=== PATIENT | male | born 1975 | race Caucasian/White ===

== ENCOUNTER 2016-12-14 17:28 | Emergency (ER) | payer BC ==
[2016-12-14] MEDS ORDERED: Penicillin G Benzathine 1.2MU* 1,200,000 UNITS/2 ML SYR IM ONE (17:52)
[2016-12-14 18:00] VITALS: BP 135/83
--- NOTE | 2016-12-14 18:01 | UC ---
Dental HPI - HPI Summary HPI Summary: patient has a row of broken and cavity filled teeth, large abcess and appears to be nerve pain he is experiencing. - History of Current Complaint Chief Complaint: UCDentalProblem Stated Complaint: DENTAL PAIN Time Seen by Provider: 12/14/16 17:58 Hx Obtained From: Patient Onset/Duration: Sudden Onset, Lasting Weeks Severity: Severe Related History: Previous Dental Care on Same Tooth - Allergies/Home Medications Allergies/Adverse Reactions: Allergies Allergy/AdvReac Type Severity Reaction Status Date / Time Ibuprofen [From Motrin] AdvReac Nausea Verified 12/14/16 17:51 PMH/Surg Hx/FS Hx/Imm Hx Previously Healthy: Yes - Surgical History Surgical History: Yes Surgery Procedure, Year, and Place: undescended testicle and hernia - Family History Known Family History: Negative: Cardiac Disease, Hypertension - Social History Alcohol Use: Occasionally Substance Use Type: None Smoking Status (MU): Never Smoked Tobacco - Immunization History Most Recent Tetanus Shot: 2013 Review of Systems Constitutional: Negative Skin: Negative Eyes: Negative ENT: Dental Pain Respiratory: Negative Cardiovascular: Negative Gastrointestinal: Negative Genitourinary: Negative Motor: Negative Neurovascular: Negative Musculoskeletal: Negative Neurological: Negative Psychological: Negative All Other Systems Reviewed And Are Negative: Yes Physical Exam Triage Information Reviewed: Yes Appearance: Well-Appearing, Well-Nourished, Pain Distress Vital Signs: Initial Vital Signs Temp 97.5 F 12/14/16 17:52 Pulse 65 12/14/16 17:52 Resp 16 12/14/16 17:52 BP 135/83 12/14/16 17:52 Pulse Ox 97 12/14/16 17:52 Vital Signs Reviewed: Yes Eye Exam: Normal Eyes: Positive: Conjunctiva Clear ENT Exam: Normal ENT: Positive: Hearing grossly normal, Pharynx normal, TMs normal Dental Exam: Normal Dental: Positive: Gross Decay/Caries @, Dental Fracture @, Abscess @ - right lower jaw Neck exam: Normal Neck: Positive: Supple, Nontender, No Lymphadenopathy Respiratory Exam: Normal Cardiovascular Exam: Normal Abdominal Exam: Normal Abdomen Description: Positive: Nontender, No Organomegaly, Soft Bowel Sounds: Positive: Present Musculoskeletal Exam: Normal Musculoskeletal: Positive: Strength Intact, ROM Intact, No Edema Neurological Exam: Normal Neurological: Positive: Alert, Muscle Tone Normal Psychological Exam: Normal Skin Exam: Normal Dental Complaint Course/Dx - Course Course Of Treatment: hx obtained, exam performed ,meds reviewed, given shot of pcn, prescribed a few days of pain medication recommend follow up with dentist - Differential Dx/Diagnosis Differential Diagnosis/Dx: Dental Caries, Fractured Tooth, Peridontic Disease, Pharyngitis, Tonsillitis Provider Diagnoses: fractured molar,. multiple dental caries. dental nerve pain/sensitivity Discharge - Discharge Plan Condition: Stable Disposition: HOME Prescriptions: HYDROcodone/ACETAMIN 5-325 MG* [Webster 5-325 TAB*] 1 tab PO Q8H PRN #12 tab MDD 3 tabs PRN Reason: Pain Patient Education Materials: Dental Abscess (ED) Referrals: Micah Bryan MD [Primary Care Provider] - Additional Instructions: you have an infection in the bottom left jaw, I have given a shot of penicillin for the infection and I recommend the Webster as needed for apin, Do not drink, drive or operate heavy machinery while on the pain medication. Follow up with the dentist JACKIE
== END 2016-12-14 18:21 | disposition home or self-care (01) ==
LOC: UCCORT 17:28
DX: S02.5XXA Fracture of tooth (traumatic), initial encounter for closed fracture (principal); K02.9 Dental caries, unspecified; G58.8 Other specified mononeuropathies
CPT/HCPCS: 96372; 99212; G0463; J0558

== ENCOUNTER 2017-01-26 11:42 | Emergency (ER) | payer BC ==
[2017-01-26 12:28] VITALS: BP 123/79
[2017-01-26] MEDS ORDERED: Ketorolac INJ* 60 MG/2 ML VIAL IM ONE (13:03)
--- NOTE | 2017-01-26 13:25 | UC ---
Lower Extremity/Ankle HPI - HPI Summary HPI Summary: Pt presents with c/o left posteior leg pain X 2 weeks. Pt reports that he was moving and lifting heavy itmes two weeks ago and had c/o low back pain. Pt then reports that he began having pain thet radiates from mid peft posterior buttock, to bottom of left foot. Pt reprots that left calf and posterior knee feel numb, tingling, and painful. Pt alos reports that left upper posterior leg is painful. Pt has family history for DVT and is concened that he has one. - History of Current Complaint Chief Complaint: UCLowerExtremity Stated Complaint: LEFT LEG PAIN,NUMBNESS Time Seen by Provider: 01/26/17 12:35 Hx Obtained From: Patient Onset/Duration: Gradual Onset, Lasting Weeks Severity Initially: Mild Severity Currently: Moderate Aggravating Factor(s): Standing, Ambulation Alleviating Factor(s): Nothing Able to Bear Weight: Yes - Risk Factors Gout Risk Factors: Male DVT Risk Factors: Negative Septic Arthritis Risk Factor: Negative - Allergies/Home Medications Allergies/Adverse Reactions: Allergies Allergy/AdvReac Type Severity Reaction Status Date / Time Ibuprofen [From Motrin] AdvReac Nausea Verified 01/26/17 12:24 Home Medications: Home Medications Naproxen TAB* [Naprosyn 250 mg TAB*] 250 mg PO Q8H PRN 01/26/17 [History Confirmed 01/26/17] PMH/Surg Hx/FS Hx/Imm Hx Previously Healthy: Yes - Surgical History Surgical History: Yes Surgery Procedure, Year, and Place: undescended testicle and hernia - Family History Known Family History: Positive: Other - DVT 2 brothers Negative: Cardiac Disease, Hypertension - Social History Occupation: Employed Full-time Lives: With Family Alcohol Use: Occasionally Substance Use Type: None Smoking Status (MU): Never Smoked Tobacco Have You Smoked in the Last Year: No - Immunization History Most Recent Tetanus Shot: 2013 Review of Systems Constitutional: Negative Skin: Negative Eyes: Negative ENT: Negative Respiratory: Negative Cardiovascular: Negative Gastrointestinal: Negative Genitourinary: Negative Motor: Decreased ROM - left lowerleg Neurovascular: Other - numbness, tingling Musculoskeletal: Arthralgia, Calf Tenderness - left, Myalgia Neurological: Weakness - left lower extremity Psychological: Negative Is Patient Immunocompromised?: No All Other Systems Reviewed And Are Negative: Yes Physical Exam Triage Information Reviewed: Yes Completion Of Physical Exam Limited Due To: Patient age - mild Appearance: Pain Distress Vital Signs: Initial Vital Signs Temp 97.9 F 01/26/17 12:25 Pulse 73 01/26/17 12:25 Resp 16 01/26/17 12:25 BP 123/79 01/26/17 12:25 Pulse Ox 98 01/26/17 12:25 Vital Signs Reviewed: Yes Eye Exam: Normal ENT Exam: Normal Neck exam: Normal Respiratory Exam: Normal Cardiovascular Exam: Normal Abdominal Exam: Normal Musculoskeletal: Positive: Strength Limited @ - left lower extremity, Other: - tenderness, left buttock, left posterior calf and knee with palpation Neurological Exam: Normal Psychological Exam: Normal Skin Exam: Normal Lower Extremity Course/Dx - Course Course Of Treatment: I discussed with the pt the need to go to the ER for further evaluation and testing to rule out DVt. Pt verbalized understanding and agreed to plan of care. - Differential Dx/Diagnosis Differential Diagnosis/HQI/PQRI: DVT Provider Diagnoses: Sciatica left lower leg Discharge - Discharge Plan Condition: Stable Disposition: HOME Patient Education Materials: Sciatica (ED), Leg Edema (ED), Leg Pain (ED), Lower Back Exercises (ED) Referrals: Micah Bryan MD [Primary Care Provider] - If Needed Additional Instructions: It is recommended that you follow up immediately at the Emergency Department for further evaluation and testing.
== END 2017-01-26 13:30 | disposition home or self-care (01) ==
LOC: UCCORT 11:42
DX: M54.32 Sciatica, left side (principal); Z88.6 Allergy status to analgesic agent
CPT/HCPCS: 96372; 99211; G0463; J1885

== ENCOUNTER 2017-10-04 17:21 | Emergency (ER) | payer SELFPAY ==
[2017-10-04 17:41] VITALS: BP 144/88
--- NOTE | 2017-10-04 18:06 | UC ---
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 - History of Current Complaint Chief Complaint: UCLowerExtremity Stated Complaint: R KNEE INJURY Time Seen by Provider: 10/04/17 17:46 Hx Obtained From: Patient Onset/Duration: Sudden Onset, Lasting Hours Severity Initially: Moderate Severity Currently: Mild Pain Intensity: 2 Pain Scale Used: 0-10 Numeric Character: Dull, Aching Aggravating Factor(s): Weight Bearing Alleviating Factor(s): Rest Associated Signs And Symptoms: Positive: Negative Able to Bear Weight: Yes - Allergies/Home Medications Allergies/Adverse Reactions: Allergies Allergy/AdvReac Type Severity Reaction Status Date / Time ibuprofen Allergy Nausea Verified 10/04/17 17:42 PMH/Surg Hx/FS Hx/Imm Hx Previously Healthy: Yes - Surgical History Surgical History: Yes Surgery Procedure, Year, and Place: undescended testicle and hernia. HERNIATED DISC REPAIR mar - Family History Known Family History: Positive: Other - DVT 2 brothers Negative: Cardiac Disease, Hypertension - Social History Alcohol Use: Occasionally Substance Use Type: None Smoking Status (MU): Never Smoked Tobacco Have You Smoked in the Last Year: No - Immunization History Most Recent Tetanus Shot: 2013 Review of Systems Constitutional: Negative Skin: Negative Eyes: Negative ENT: Negative Respiratory: Negative Cardiovascular: Negative Gastrointestinal: Negative Genitourinary: Negative Motor: Negative Neurovascular: Negative Musculoskeletal: Arthralgia Neurological: Negative Psychological: Negative Is Patient Immunocompromised?: No All Other Systems Reviewed And Are Negative: Yes Physical Exam Triage Information Reviewed: Yes Appearance: Well-Appearing, No Pain Distress, Well-Nourished Vital Signs: Initial Vital Signs Temp 99.4 F 10/04/17 17:36 Pulse 76 10/04/17 17:36 Resp 16 10/04/17 17:36 BP 144/88 10/04/17 17:36 Pulse Ox 99 10/04/17 17:36 Vital Signs Reviewed: Yes Eyes: Positive: Conjunctiva Clear ENT: Positive: Hearing grossly normal. Negative: Nasal congestion, Nasal drainage, Trismus, Muffled voice, Hoarse voice Neck: Positive: Supple Respiratory: Positive: No respiratory distress, No accessory muscle use Musculoskeletal: Positive: Strength Intact, ROM Intact, No Edema, Other: - non tender Neurological: Positive: Alert Psychological Exam: Normal Skin Exam: Normal Knee Pain Course/Dx - Differential Dx/Diagnosis Provider Diagnoses: trivial left knee injury. possible mild MCL strain Discharge - Sign-Out/Discharge Documenting (check all that apply): Discharge/Admit/Transfer - Discharge Plan Condition: Stable Disposition: HOME Patient Education Materials: Knee Pain (ED) Referrals: Micah Bryan MD [Primary Care Provider] - Additional Instructions: i suspect a mild knee sprain rest ice elevation aleve I expect you to be able to return to full duty on 10/06 If symptoms worsen return here for reevaluation - Billing Disposition and Condition Condition: STABLE Disposition: HOME
== END 2017-10-04 18:02 | disposition home or self-care (01) ==
LOC: UCEAST 17:21
DX: S89.92XA Unspecified injury of left lower leg, initial encounter (principal); X58.XXXA Exposure to other specified factors, initial encounter; Y93.89 Activity, other specified; Y92.9 Unspecified place or not applicable; Y99.0 Civilian activity done for income or pay; Z88.6 Allergy status to analgesic agent
CPT/HCPCS: 99211; G0463

== ENCOUNTER 2019-01-26 19:22 | Emergency (ER) | payer OTHER ==
[2019-01-26 19:41] VITALS: BP 140/83
[2019-01-26] MEDS ORDERED: Cyclobenzaprine TAB* 10 MG PO ONE (20:37)
--- NOTE | 2019-01-26 20:54 | UC ---
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 LANDED ON HIS LEFT FOREARM SUSTAINING AN ABRASION AND JAMMED HIS RIGHT ARM. ALSO SOMEHOW LANDED ON HIS BUTTOCKS AND HAS MID BACK PAIN. NO SWELLING. FULL RANGE OF MOTION. UP-TO-DATE TETANUS. - History of Current Complaint Chief Complaint: UCUpperExtremity Stated Complaint: FALL, ARM AND OTHER PAIN Time Seen by Provider: 01/26/19 20:17 Hx Obtained From: Patient Onset/Duration: Sudden Onset, Lasting Hours, Still Present Onset Of Pain: Immediate Severity Initially: Moderate Severity Currently: Moderate Pain Intensity: 6 Pain Scale Used: 0-10 Numeric Mechanism Of Injury: Fall From A Standing Position Aggravating Factor(s): Movement Alleviating Factor(s): Rest Associated Signs And Symptoms: Negative: Ecchymosis - Allergies/Home Medications Allergies/Adverse Reactions: Allergies Allergy/AdvReac Type Severity Reaction Status Date / Time ibuprofen Allergy Nausea Verified 01/26/19 19:41 PMH/Surg Hx/FS Hx/Imm Hx Previously Healthy: Yes - Surgical History Surgical History: Yes Surgery Procedure, Year, and Place: undescended testicle and hernia. HERNIATED DISC REPAIR mar - Family History Known Family History: Positive: Other - DVT 2 brothers Negative: Cardiac Disease, Hypertension - Social History Alcohol Use: Rare Substance Use Type: None Smoking Status (MU): Never Smoked Tobacco Have You Smoked in the Last Year: No - Immunization History Most Recent Tetanus Shot: 2013 Review of Systems All Other Systems Reviewed And Are Negative: Yes Constitutional: Positive: Negative Skin: Positive: Other - ABRASION Respiratory: Positive: Negative Cardiovascular: Positive: Negative Gastrointestinal: Positive: Negative Musculoskeletal: Positive: Arthralgia Physical Exam Triage Information Reviewed: Yes Appearance: Well-Appearing, No Pain Distress, Well-Nourished Vital Signs: Initial Vital Signs Temp 97.6 F 01/26/19 19:37 Pulse 70 01/26/19 19:37 Resp 18 01/26/19 19:37 BP 140/83 01/26/19 19:37 Pulse Ox 97 01/26/19 19:37 Vital Signs Reviewed: Yes Eyes: Positive: Conjunctiva Clear ENT: Positive: Hearing grossly normal Neck: Positive: Supple, Nontender Respiratory: Positive: No respiratory distress, No accessory muscle use Cardiovascular: Positive: Pulses Normal Abdomen Description: Positive: Soft Musculoskeletal: Positive: ROM Intact, No Edema, Other: - DIFFUSELY TENDER RIGHT SHOULDER. NEG ROTATOR CUFF TESTING. NEG CROSS ARM Neurological: Positive: Alert, Muscle Tone Normal Psychological: Positive: Age Appropriate Behavior Skin: Positive: Other - ABRASION LEFT PROXIMAL FOREARM Minor Trauma Course/Dx - Course Course Of Treatment: NO INDICATION FOR X-RAYS TODAY BASED ON PATIENT'S PHYSICAL EXAM. ABRASION COVERED WITH ANTIBIOTIC OINTMENT AND A NONSTICK BANDAGE. SLING APPLIED BY RN TO HELP OFFLOAD PRESSURE FROM HIS RIGHT SHOULDER. ADVISED SLOW RANGE OF MOTION AND STRETCHING EXERCISES. OTC MEDICATIONS NEEDED FOR DISCOMFORT. FLEXERIL BEFORE BED. FOLLOW-UP IF NOT IMPROVING OVER THE NEXT 1-2 WEEKS. - Differential Dx/Diagnosis Provider Diagnosis: Contusion of right arm, Mid back pain, Abrasion of left forearm Discharge ED - Sign-Out/Discharge Documenting (check all that apply): Patient Departure All imaging exams completed and their final reports reviewed: No Studies - Discharge Plan Condition: Stable Disposition: HOME Prescriptions: Cyclobenzaprine TAB* [Flexeril TAB*] 10 mg PO BID PRN #30 tab PRN Reason: Pain Patient Education Materials: Contusion in Adults (ED), Abrasion (ED), Back Pain (ED) Forms: *Work Release Referrals: Micah Bryan MD [Primary Care Provider] - If Needed Additional Instructions: COVER THE ABRASION WITH ANTIBIOTIC OINTMENT AND A NONSTICK BANDAGE. SEEK FOLLOW -UP IF YOU DEVELOP SPREADING REDNESS OF THE SKIN, PURULENT DRAINAGE, FEVER, INCREASED PAIN OR ANY OTHER CONCERNING SYMPTOMS. THE PAIN YOU FEEL IN YOUR MID BACK AND RIGHT ARM/SHOULDER ARE LIKELY DUE TO MUSCULOSKELETAL PAIN/STRAIN FROM YOUR FALL. YOUR PHYSICAL EXAM IS NOT SUGGESTIVE OF ANY BONY INJURY. NO INDICATION FOR X-RAYS TODAY. IF YOUR SYMPTOMS ARE NOT IMPROVING OVER THE NEXT 1-2 WEEKS SEEK FOLLOW-UP YOU MAY BENEFIT FROM IMAGING AT THAT TIME. OTC MEDICATIONS NEEDED FOR PAIN. MUSCLE RELAXER BEFORE BED. DO NOT TAKE AT THE SAME TIME YOUR TRAZODONE BOTH THESE MEDICINES CAN BE SEDATING. - Billing Disposition and Condition Condition: STABLE Disposition: Home
== END 2019-01-26 20:50 | disposition home or self-care (01) ==
LOC: UCEAST 19:22
DX: S50.812A Abrasion of left forearm, initial encounter (principal); S40.021A Contusion of right upper arm, initial encounter; W10.9XXA Fall (on) (from) unspecified stairs and steps, initial encounter; Y92.019 Unspecified place in single-family (private) house as the place of occurrence of the external cause
CPT/HCPCS: 99202; A9270-GY; G0463